=== PATIENT | female | born 1955 | race African-American/Black ===

== ENCOUNTER 2018-09-29 14:49 | Emergency (ER) | payer MEDICARE, OTHER ==
[~2018-09-29] VITALS: Ht 157.5 cm; Wt 64.9 kg
[2018-09-29] MEDS ORDERED: FOLIC ACID1 MG ORAL (15:06)
[2018-09-29] MEDS ORDERED: Norco 5mg/325mg tab ORAL ONE (15:45)
--- NOTE | 2018-09-29 15:55 | Diagnostic Imaging Report ---
Indication: Right foot pain Technique: 3 views right foot Comparison: none Findings: There is an oblique nondisplaced fracture of the distal fibula, appearing only one of the 3 available images. No acute foot fracture demonstrated. The joint spaces are preserved. Impression: Positive for distal fibular fracture No acute foot fracture demonstrated This agrees with the preliminary interpretation provided by the emergency room physician
--- NOTE | 2018-09-29 16:24 | Emergency Room Report ---
History of Present Illness General Chief Complaint: Lower Extremity Injury Source: Patient (Mariana Moreno) Present Illness HPI 63-year-old female presents to the emergency department complaining of 9 out of 10 in severity localized right foot pain status post mechanical trip and fall yesterday. Patient reports she is going to the bathroom during the night and twisted her ankle. Patient reports pain with weightbearing she states she has swelling and tenderness to the top of her foot. Patient denies previous injury to this extremity. Patient states she took ibuprofen with no relief.Denies numbness tingling or loss of sensation or gross motor movements of the extremities, incontinence of bowel or bladder. Denies CP, Palpitations, LOC, AMS , dizziness, Changes in Vision, weakness or a sudden severe headache. She denies midline neck or back pain. (Mraiana Moreno) Allergies: Coded Allergies: CODEINE (Verified Allergy, Unknown, 09/29/18) PENICILLINS (Verified Allergy, Unknown, 09/29/18) PHENYTOIN (Verified Allergy, Unknown, 09/29/18) Patient History Past Medical History: see triage record Past Surgical History: none Pertinent Family History: none Now: No Reviewed Nursing Documentation: PMH: Agreed; PSxH: Agreed (Mariana Moreno) Nursing Documentation-PMH Past Medical History: No History, Except For Hx Hypertension: Yes Hx Asthma: Yes (Mariana Moreno) Review of Systems All Other Systems: negative except mentioned in HPI (Mariana Moreno) Physical Exam Vital Signs Date Time Temp Pulse Resp B/P (MAP) Pulse Ox O2 Delivery O2 Flow Rate FiO2 09/29/18 15:02 98.2 93 18 119/72 97 Room Air Sp02 EP Interpretation: reviewed, normal General Appearance: no apparent distress, alert, GCS 15, non-toxic Head: normocephalic, atraumatic Eyes: bilateral eye normal inspection, bilateral eye PERRL ENT: hearing grossly normal, normal voice Neck: full range of motion Respiratory: lungs clear, normal breath sounds, speaking full sentences Cardiovascular #1: regular rate, rhythm Cardiovascular #2: 2+ dorsalis pedis (R), 2+ dorsalis pedis (L) Musculoskeletal: back normal, normal range of motion, tender - TTP dorsum of the Right foot, and lateral ankle. swelling noted. no bruising. NVI Neurologic: alert, oriented x3, responsive, motor strength/tone normal, sensory intact, speech normal, grossly normal Psychiatric: judgement/insight normal Skin: normal color, no rash, warm/dry, well hydrated (Mariana Moreno) Medical Decision Making PA Attestation Dr. cerna is my supervising Physician whom patient management has been discussed with. (Mariana Moreno) Medicare Attestation The history of Saundra Alvarado has been reviewed and management options for her have been examined and discussed by Maurizio Clemons. I have personally examined and interviewed the patient. (Maurizio Clemons MD) Diagnostic Impression: Primary Impression: Fracture of distal fibula Qualified Codes: S82.821A - Torus fracture of lower end of right fibula, initial encounter for closed fracture ER Course 63-year-old female presents to the emergency department complaining of 9 out of 10 in severity localized right foot pain status post mechanical trip and fall yesterday. Patient reports she is going to the bathroom during the night and twisted her ankle. Patient reports pain with weightbearing she states she has swelling and tenderness to the top of her foot. Patient denies previous injury to this extremity. Patient states she took ibuprofen with no relief.Denies numbness tingling or loss of sensation or gross motor movements of the extremities, incontinence of bowel or bladder. Denies CP, Palpitations, LOC, AMS , dizziness, Changes in Vision, weakness or a sudden severe headache. She denies midline neck or back pain. Ddx considered but are not limited to Fracture, dislocation, contusion, Sprain/ Strain/Spasm, Vital signs: are WNL, pt. is afebrile H&PE are most consistent with musculoskeletal injury will perform imaging to r/ o fractures/dislocations. ORDERS: - X-ray Right Foot 3 views - POSITIVE FOR DISTAL FIBULAR TORUS FX. , no Dislocation, or significant soft tissue injury, per preliminary read in ED, and signed by AYDE Moreno, my supervising physician has reviewed, and agrees with my interpretation. ED INTERVENTIONS: - [place] PO Short leg posterior with stirrup Splint applied by upholstery tech. Pt. remains neurovascularly intact. --I discussed with this patient in detail regarding the results of her x-ray findings. Discussed with patient that it is very important that she follow up appropriately with an environmental monitoring specialist as this is an important weightbearing bone. The patient endorses that she has a primary care physician that she will get a referral from. All questions were answered patient verbalizes her understanding and agreement with this treatment plan. DISCHARGE: At this time pt. is stable for d/c to home. Will provide printed patient care instructions, and any necessary prescriptions. Care plan and follow up instructions have been discussed with the patient prior to discharge. (Mariana Moreno) Other X-Ray Diagnostic Results Other X-Ray Diagnostic Results : X-Ray ordered: Right Foot # of Views/Limited Vs Complete: 3 View Indication: Pain EP Interpretation: Yes PA Xray: Interpretation reviewed, by supervising MD, and agrees with findings. Interpretation: no dislocation, no soft tissue swelling, other - Torus Distal Fibula Fracture Impression: Other - abnormal Electronically Signed by: Mariana Moreno PA-C (Mariana Moreno) Last Vital Signs Date Time Temp Pulse Resp B/P (MAP) Pulse Ox O2 Delivery O2 Flow Rate FiO2 09/29/18 15:02 98.2 93 18 119/72 97 Room Air (Mariana Moreno) Disposition: HOME, SELF-CARE Condition: Stable Scripts Acetaminophen* (TYLENOL EXTRA STRENGTH*) 500 Mg Tablet 500 MG ORAL Q6H, #20 TAB 0 Refills Prov: Mariana Moreno 09/29/18 Hydrocodone Bit/Acetaminophen 5-325* (NORCO 5-325*) 1 Each Tablet 1 TAB ORAL Q6H PRN for For Pain, #10 TAB 0 Refills Prov: Mariana Moreno 09/29/18 Referrals: NOT CHOSEN IPA/,REFERRING (PCP) Patient Instructions: Undisplaced Fibular Ankle Fracture Treated With Immobilization, Adult Additional Instructions: Take medications as directed. Follow up with an MUSIC EXECUTIVE in 3-5 days, even if your symptoms have resolved. If symptoms persist MRI may be required at the discretion of your PCP or Ortho Specialist. --Please review list of primary care clinics, if you do not already have a primary care provider who can give you an Orthopedic Referral. Return sooner to ED if new symptoms occur, or current symptoms become worse. Do not drink alcohol, drive, or operate heavy machinery while taking [place] as this may cause drowsiness. - Please note that this Emergency Department Report was dictated using [employer] dynamicist technology software, occasionally this can lead to erroneous entry secondary to interpretation by the dictation equipment. Mariana Moreno Sep 29, 2018 16:24 Maurizio Clemons MD Oct 03, 2018 07:46
[2018-09-29] MEDS ORDERED: NORCO 5-325 TA1 EACH ORAL (16:46)
[2018-09-29] MEDS ORDERED: TYLENOL EXTRA500 MG ORAL (16:46)
[2018-09-29 17:13] VITALS: BP 115/68
== END 2018-09-29 17:33 | disposition home or self-care (01) ==
LOC: EMR 15:45
DX: S82.434A Nondisplaced oblique fracture of shaft of right fibula, initial encounter for closed fracture (principal); W01.0XXA Fall on same level from slipping, tripping and stumbling without subsequent striking against object, initial encounter; Y92.009 Unspecified place in unspecified non-institutional (private) residence as the place of occurrence of the external cause; I10 Essential (primary) hypertension; J45.909 Unspecified asthma, uncomplicated; Z88.5 Allergy status to narcotic agent; Z88.0 Allergy status to penicillin; Z88.8 Allergy status to other drugs, medicaments and biological substances
CPT/HCPCS: 29515; 99283